=== PATIENT | male | born 1950 | race Caucasian/White ===

== ENCOUNTER 2024-06-01 06:55 | Day surgery (SDC) | payer MEDICARE ==
[2024-06-01] MEDS ORDERED: Midazolam 1 MG/ML 2 ML SDV IV ONE (06:56)
[2024-06-01] MEDS ORDERED: Propofol 200 MG/20 ML SDV IV ONE (06:56)
[2024-06-01] MEDS ORDERED: Sodium Chloride 0.9% 10 ML Syringe FLUSH PRN (07:00)
[2024-06-01] MEDS: Lactated Ringers 1,000 ML IV SCH (07:42)
[2024-06-01] MEDS: Simethicone Drops 40 MG/0.6 ML 30 ML Bottle ONE (08:30)
== END 2024-06-01 10:13 | disposition home or self-care (01) ==
LOC: FB.SDS 06:55
PROVIDERS: ATTEND Surgery
DX: Z12.11 Encounter for screening for malignant neoplasm of colon (principal); K57.30 Diverticulosis of large intestine without perforation or abscess without bleeding; K21.9 Gastro-esophageal reflux disease without esophagitis; E78.5 Hyperlipidemia, unspecified; I10 Essential (primary) hypertension; E66.9 Obesity, unspecified; Z68.31 Body mass index [BMI] 31.0-31.9, adult; Z79.2 Long term (current) use of antibiotics; Z79.899 Other long term (current) drug therapy
CPT/HCPCS: 00812; 45378; 99100; A9270; J2250; J2704; J7120